=== PATIENT | female | born 1955 | race Caucasian/White ===

== ENCOUNTER → 2016-09-11 | Outpatient (CLI) | payer OTHER ==
--- NOTE | 2016-09-11 14:42 | MM ---
Reason for exam: screening (asymptomatic). Last mammogram was performed 5 years and 2 months ago. Physical Findings: A clinical breast exam by your physician is recommended on an annual basis and results should be correlated with mammographic findings. MG Screening Mammo w CAD Bilateral CC and MLO view(s) were taken. Prior study comparison: July 11, 2011, bilateral digital screening mammo w/CAD. June 14, 2009, bilateral digital screening mammogram. The breast tissue is heterogeneously dense. This may lower the sensitivity of mammography. Increasing nodularity in the right breast. ASSESSMENT: Incomplete: need additional imaging evaluation, BI-RAD 0 RECOMMENDATION: Ultrasound of the right breast. [facility] will attempt to contact patient to return for ultrasound.
== END | disposition home or self-care (01) ==
LOC: RADMAMWWP 09:12
PROVIDERS: ATTEND Family Medicine
DX: Z12.31 Encounter for screening mammogram for malignant neoplasm of breast (principal)

== ENCOUNTER → 2016-10-22 | Outpatient (CLI) | payer OTHER ==
--- NOTE | 2016-10-23 07:18 | USB ---
Reason for exam: additional evaluation requested from abnormal screening. Physical Findings: Nurse did not find any significant physical abnormalities on exam. US Breast Workup RT Right breast ultrasound includes all four quadrants, the retroareolar region and axilla. Finding demonstrates a 0.4 x 0.3 x 0.3cm oval lesion too small to characterize at 3 o'clock and a 0.6 x 0.6 x 1.2cm oval, cystic cluster at 4 o'clock. These results were verbally communicated with the patient and result sheet given to the patient on 10/22/16. ASSESSMENT: Probably benign, BI-RAD 3 RECOMMENDATION: Ultrasound of the right breast in 6 months.
== END | disposition home or self-care (01) ==
LOC: RADUSWWP 14:51
PROVIDERS: ATTEND Family Medicine
DX: R92.8 Other abnormal and inconclusive findings on diagnostic imaging of breast (principal)

== ENCOUNTER → 2017-05-13 | Outpatient (CLI) | payer OTHER ==
--- NOTE | 2017-05-13 10:29 | USB ---
Reason for exam: follow-up at short interval from prior study. Physical Findings: Nurse did not find any significant physical abnormalities on exam. US Breast RT Right breast ultrasound includes all four quadrants, the retroareolar region and axilla. Finding demonstrates a 0.8 x 1.3 x 0.5cm cystic lesion at 4 o'clock. These results were verbally communicated with the patient and result sheet given to the patient on 05/13/17. ASSESSMENT: Benign, BI-RAD 2 RECOMMENDATION: Return to routine screening mammogram schedule for both breasts. Back on schedule.
== END | disposition home or self-care (01) ==
LOC: RADUSWWP 09:23
PROVIDERS: ATTEND Family Medicine
DX: R92.8 Other abnormal and inconclusive findings on diagnostic imaging of breast (principal)

== ENCOUNTER → 2020-01-06 | Outpatient (CLI) | payer MEDICARE, OTHER | END | disposition home or self-care (01) | LOC: LABWHC1 09:23 | PROVIDERS: ATTEND Nurse Practitioner Family | DX: Z20.828 Contact with and (suspected) exposure to other viral communicable diseases (principal) | CPT/HCPCS: U0003; C9803 ==

== ENCOUNTER 2021-04-16 18:19 | Inpatient (IN) | payer MEDICARE, OTHER ==
[2021-04-16 18:36] LABS: Glucose,Whole Blood 101 mg/dL (75-99)
[2021-04-16 18:56] LABS: Basophils # (A) 0.1 k/uL (0-0.2); Basophils % (A) 1 %; Eosinophils # (A) 0.2 k/uL (0-0.7); Eosinophils % (A) 3 %; HCT 46.1 % (34.0-46.0); HGB 15.3 gm/dL (11.4-16.0); Lymphocytes # (A) 1.9 k/uL (1.0-4.8); Lymphocytes % (A) 26 %; MCH 31.5 pg (25.0-35.0); MCHC 33.3 g/dL (31.0-37.0); MCV 94.7 fL (80.0-100.0); Mean Platelet Volume 8.1; Monocytes # (A) 0.7 k/uL (0-1.0); Monocytes % (A) 11 %; Neutrophils % (A) 56 %; Platelet Count 189 k/uL (150-450); RBC 4.86 m/uL (3.80-5.40); RDW 12.1 % (11.5-15.5); WBC 7.1 k/uL (3.8-10.6)
--- NOTE | 2021-04-16 18:57 | ED ---
General Adult HPI - General Chief complaint: Neuro Symptoms/Deficit Stated complaint: poss stroke Source: patient, EMS Mode of arrival: ambulatory Limitations: no limitations - History of Present Illness Initial comments: 58-year-old female past medical history of hypertension presents emergency Department with reported numbness, tingling and heaviness to her left side. Symptoms started around 5:25 PM. States that she had sudden onset of sensory change to these extremities. Denies having any weakness.Difficulties, headache. Denies any head trauma. No history of strokes. EMS was called and en route to the hospital the patient possibly had an episode of A. fib however there unable to capture it. Patient does not have a history of A. fib. Arrives in a normal sinus rhythm. She denies having any chest pain. No fevers. Patient any anticoagulation. No back pain. No other alleviating, precipitating or modifying factors - Related Data Home Medications Medication Instructions Recorded Confirmed Amoxic-Pot Clav 875-125Mg 1 tab PO BID 04/16/21 04/16/21 [Augmentin 875-125] Levothyroxine Sodium [Synthroid] 150 mcg PO HS 04/16/21 04/16/21 amLODIPine [Norvasc] 5 mg PO HS 04/16/21 04/16/21 Allergies Allergy/AdvReac Type Severity Reaction Status Date / Time acetaminophen [From Percocet] Allergy Rash/Hives Verified 04/16/21 19:26 morphine Allergy Rash/Hives Verified 04/16/21 19:26 oxycodone [From Percocet] Allergy Rash/Hives Verified 04/16/21 19:26 Sulfa (Sulfonamide Allergy Rash/Hives Verified 04/16/21 19:26 Antibiotics) Tetracyclines Allergy Rash/Hives Verified 04/16/21 19:26 Review of Systems ROS Statement: Those systems with pertinent positive or pertinent negative responses have been documented in the HPI. ROS Other: All systems not noted in ROS Statement are negative. Past Medical History Past Medical History: Hypertension, Thyroid Disorder History of Any Multi-Drug Resistant Organisms: None Reported Past Surgical History: Section Additional Past Surgical History / Comment(s): Thyroidectomy, Past Psychological History: No Psychological Hx Reported Smoking Status: Former smoker Past Alcohol Use History: Occasional Past Drug Use History: None Reported General Exam Limitations: no limitations Course Vital Signs 04/16/21 04/16/21 04/16/21 18:23 18:47 18:53 Temperature 99.6 F 99.5 F 98.5 F Pulse Rate 110 H 107 H 106 H Respiratory 18 18 18 Rate Blood Pressure 190/80 201/99 201/99 O2 Sat by Pulse 92 L 93 L 98 Oximetry 04/16/21 04/16/21 19:17 22:00 Temperature 98.6 F Pulse Rate 105 H 99 Respiratory 18 18 Rate Blood Pressure 171/90 153/94 O2 Sat by Pulse 97 95 Oximetry - Reevaluation(s) Reevaluation #1: 04/16/21 18:[address] Cheng - not a TPA candidate EKG Findings - EKG Comments: EKG Findings:: EKG demonstrates a sinus tachycardia with a rate of 107. AR interval 184. QRS 87. QTC of 402. No acute ST segment elevations or depressions concerning for ischemic changes. Medical Decision Making - Medical Decision Making Upon arrival patient is promptly placed in a trauma 1. A thorough history and physical exam was performed. NIH is assessed and is noted to be 1. Because of this we did activate a code alteplase. IV is established and laboratory studies were conducted. Patient does go over for a CT of her head as well as CT angiogr aphy. Case is discussed with Dr. Witt. As she does have a low NIH he feels that the patient is not a candidate for TPA unless there is large vessel occlusion. Laboratory studies are within normal limits. CT of the brain demonstrates no acute findings. Chest x-ray demonstrates no active cardio pulmonary disease. Patient is given aspirin and a statin. Recommended admission for TIA workup for which the patient did agree to. She continues to have persistent tingling to the lateral aspect of her left foot. I spoke with Dr. Angel who agreed to admit the patient. Patient remained in stable condition and was transferred to the floor - Lab Data Result diagrams: 04/16/21 18:28 04/16/21 18:28 Lab Results 04/16/21 04/16/21 04/16/21 Range/Units 18:28 18:28 18:28 WBC 7.1 (3.8-10.6) k/uL RBC 4.86 (3.80-5.40) m/uL Hgb 15.3 (11.4-16.0) gm/dL Hct 46.1 H (34.0-46.0) % MCV 94.7 (80.0-100.0) fL MCH 31.5 (25.0-35.0) pg MCHC 33.3 (31.0-37.0) g/dL RDW 12.1 (11.5-15.5) % Plt Count 189 (150-450) k/uL MPV 8.1 Neutrophils % 56 % Lymphocytes % 26 % Monocytes % 11 % Eosinophils % 3 % Basophils % 1 % Neutrophils # 4.0 (1.3-7.7) k/uL Lymphocytes # 1.9 (1.0-4.8) k/uL Monocytes # 0.7 (0-1.0) k/uL Eosinophils # 0.2 (0-0.7) k/uL Basophils # 0.1 (0-0.2) k/uL PT 10.0 (9.0-12.0) sec INR 0.9 (<1.2) APTT 20.0 L (22.0-30.0) sec Sodium 136 L (137-145) mmol/L Potassium 4.0 (3.5-5.1) mmol/L Chloride 103 (98-107) mmol/L Carbon Dioxide 22 (22-30) mmol/L Anion Gap 11 mmol/L BUN 9 (7-17) mg/dL Creatinine 0.59 (0.52-1.04) mg/dL Est GFR (CKD-EPI)AfAm >90 (>60 ml/min/1.73 sqM) Est GFR (CKD-EPI)NonAf >90 (>60 ml/min/1.73 sqM) Glucose 103 H (74-99) mg/dL POC Glucose (mg/dL) (75-99) mg/dL POC Glu Siding Stapler ID Calcium 8.9 (8.4-10.2) mg/dL Total Bilirubin 0.6 (0.2-1.3) mg/dL AST 33 (14-36) U/L ALT 35 H (4-34) U/L Alkaline Phosphatase 80 (38-126) U/L Troponin I (0.000-0.034) ng/mL Total Protein 6.8 (6.3-8.2) g/dL Albumin 4.3 (3.5-5.0) g/dL Coronavirus (PCR) (Not Detectd) 04/16/21 04/16/21 04/16/21 Range/Units 18:28 18:34 20:36 WBC (3.8-10.6) k/uL RBC (3.80-5.40) m/uL Hgb (11.4-16.0) gm/dL Hct (34.0-46.0) % MCV (80.0-100.0) fL MCH (25.0-35.0) pg MCHC (31.0-37.0) g/dL RDW (11.5-15.5) % Plt Count (150-450) k/uL MPV Neutrophils % % Lymphocytes % % Monocytes % % Eosinophils % % Basophils % % Neutrophils # (1.3-7.7) k/uL Lymphocytes # (1.0-4.8) k/uL Monocytes # (0-1.0) k/uL Eosinophils # (0-0.7) k/uL Basophils # (0-0.2) k/uL PT (9.0-12.0) sec INR (<1.2) APTT (22.0-30.0) sec Sodium (137-145) mmol/L Potassium (3.5-5.1) mmol/L Chloride (98-107) mmol/L Carbon Dioxide (22-30) mmol/L Anion Gap mmol/L BUN (7-17) mg/dL Creatinine (0.52-1.04) mg/dL Est GFR (CKD-EPI)AfAm (>60 ml/min/1.73 sqM) Est GFR (CKD-EPI)NonAf (>60 ml/min/1.73 sqM) Glucose (74-99) mg/dL POC Glucose (mg/dL) 101 H (75-99) mg/dL POC Glu Siding Stapler ID Andres, Heena Calcium (8.4-10.2) mg/dL Total Bilirubin (0.2-1.3) mg/dL AST (14-36) U/L ALT (4-34) U/L Alkaline Phosphatase (38-126) U/L Troponin I <0.012 (0.000-0.034) ng/mL Total Protein (6.3-8.2) g/dL Albumin (3.5-5.0) g/dL Coronavirus (PCR) Not Detected (Not Detectd) Disposition Clinical Impression: Paresthesia and pain of left extremity, TIA (transient ischemic attack) Disposition: ADMITTED IP TO THIS [facility] Condition: Stable Is patient prescribed a controlled substance at d/c from ED?: No Decision to Admit Reason: Admit from EC Decision Date: 04/16/21 Decision Time: 21:38
--- NOTE | 2021-04-16 19:01 | CT ---
EXAMINATION TYPE: CT brain wo con for TPA DATE OF EXAM: 04/16/2021 COMPARISON: None HISTORY: cva CT DLP: 1134 mGycm Automated exposure control for dose reduction was used. Images of the brain obtained without contrast. Ventricles have normal size. There is no mass effect or midline shift. There is no sign of intracrani al hemorrhage. Calvarium is intact. The skull base is intact. There is normal aeration of the mastoid sinuses. IMPRESSION: Head CT scan appears normal for age.
[2021-04-16 19:05] LABS: ALT 35 U/L (4-34); AST 33 U/L (14-36); African American GFR (CKD) >90 (>60 ml/min/1.73 sqM); Albumin 4.3 g/dL (3.5-5.0); Alkaline Phosphatase 80 U/L (38-126); Anion Gap 11 mmol/L; Blood Urea Nitrogen 9 mg/dL (7-17); Calcium 8.9 mg/dL (8.4-10.2); Carbon Dioxide 22 mmol/L (22-30); Chloride 103 mmol/L (98-107); Glucose 103 mg/dL (74-99); Non-African American GFR(CKD) >90 (>60 ml/min/1.73 sqM); Sodium 136 mmol/L (137-145); Total Bilirubin 0.6 mg/dL (0.2-1.3); Total Protein 6.8 g/dL (6.3-8.2)
[2021-04-16 19:11] LABS: INR 0.9 (<1.2)
--- NOTE | 2021-04-16 19:24 | CT ---
EXAMINATION TYPE: CT angio head neck DATE OF EXAM: 04/16/2021 COMPARISON: HISTORY: cva CT DLP: 603.1 mGycm Automated exposure control for dose reduction was used. CONTRAST: Performed with IV Contrast, patient injected with 65cc mL of Isovue 370. Images obtained from the aortic arch to the vertex of the brain with IV contrast. There are Three-D p ostprocessed images. 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 There is arterial flow in both subclavian arteries. There is arterial flow in the vertebral arteries bilaterally. There is arterial flow in the common internal and extra carotid arteries bilaterally. There is wide patency of the carotid artery bifurcations. There is no evidence of carotid or vertebral artery aneurysm or dis section. Left vertebral artery is larger than the right. There is arterial flow to the vertebral basi lar artery system. There is arterial flow in the anterior middle and posterior cerebral arteries. There is no mass effec t. There is no evidence of intracranial aneurysm or neovascularity. No evidence of intracranial hemod ynamic stenosis. There is normal enhancement of the venous sinuses. IMPRESSION: Negative CT angiogram of the neck. Negative CT angiogram of the brain.
--- NOTE | 2021-04-16 20:56 | XR ---
EXAMINATION TYPE: XR chest 2V DATE OF EXAM: 04/16/2021 COMPARISON: NONE HISTORY: Altered mental status TECHNIQUE: 2 views FINDINGS: There is no heart failure nor confluent pneumonic infiltrate. Costophrenic angles are clear . There are chest leads. Bony thorax is intact. IMPRESSION: No active cardiopulmonary disease.
[2021-04-16] MEDS ORDERED: ASPIRIN 325 MG TAB PO STA (22:20)
[2021-04-16] MEDS ORDERED: ATORVASTATIN 80 MG TAB PO SCH (22:30)
--- NOTE | 2021-04-17 01:20 | P.HPIM ---
History of Present Illness H&P Date: 04/17/21 The patient is a 66-year-old female with a PMH of hypertension and hypothyroidism who presented to the emergency room with complaints of sudden onset of left sided paresthesias. The patient reports that her symptoms started suddenly at around 5:30 PM earlier tonight as she was preparing her dinner in her kitchen. She reports numbness, tingling, and heaviness of the entire left side of her body. The patient immediately informed her who activated EMS. The patient denied any history of prior strokes. She further denied experiencing weakness, chest discomfort, shortness of breath, visual disturbances, or speech impairment. As per the ED documentation, the patient was noted to be in A. fib by the EMS though it could not be captured. Patient denied history of A. fib. At the time of interview, the patient reported that her symptoms have resolved times since onset and then recur after a few minutes. She does report improvement at the time of interview. She denied back pain, u rinary complaints, anxiety, history of panic disorder, fever, chills, cough, nausea, vomiting, abdominal pain, diarrhea. Brain CT in the emergency room was unremarkable with CTA head and neck also unremarkable. Chest x-ray was unremarkable. EKG revealed sinus a cardiac 107 bpm with left axis deviation and poor R-wave progression. Code stroke was activated the case was discussed with neuro weaver apprentice. The patient was deemed to not be a candidate for TPA. Review of systems: Pertinent positives and negatives as discussed in HPI, a complete review of systems was performed and all other systems are negative. Physical examination: General: non toxic, no distress, appears at stated age, obese Derm: no unusual rashes/lesions no unusual ecchymoses, warm, dry Head: atraumatic, normocephalic, symmetric Eyes: EOMI, no lid lag, anicteric sclera, pupils equal round reactive to light ENT: Nose and ears atraumatic, no thrush, no pharyngeal erythema Neck: No thyromegaly, no cervical lymphadenopathy, trachea midline, supple Mouth: no lip lesion, mucus membranes moist Cardiovascular: S1S2 reg, no murmur, positive posterior tibial pulse bilateral, no edema, capillary refill less than 2 seconds Lungs: CTA bilateral, no rhonchi, no rales , no accessory muscle use Abdominal: soft, nontender to palpation, no guarding, no appreciable organomegaly, normal bowel sounds Ext: no gross muscle atrophy, muscle strength 5 out of 5 in all 4 extremities grossly, no contractures, Neuro: CN II-XI grossly intact, left sided impaired sensation to light touch involving left lower extremity, left abdomen, trunk, and left upper extremity, finger to nose within normal limits, no pronator drift Psych: Alert, oriented, appropriate affect Assessment/plan Left sided paresthesias, suspected TIA -Status post aspirin 325 mg once -Continue with Lipitor -Echocardiogram -Cardiac monitoring -Speech consult -Fall precautions -PT consult Possible new-onset A-fib -C/w cardiac monitoring for now Chronic conditions: Hypertension, hypothyroidism -Continue with home meds DVT prophylaxis -Heparin Subcu The patient is admitted with an anticipated less than 2 midnight stay for evaluation of TIA CODE STATUS: Full Code Discussed with: Patient Anticipated discharge date: in am Anticipated discharge place: Home Past Medical History Past Medical History: Hypertension, Thyroid Disorder History of Any Multi-Drug Resistant Organisms: None Reported Past Surgical History: Section Additional Past Surgical History / Comment(s): Thyroidectomy, Past Psychological History: No Psychological Hx Reported Smoking Status: Former smoker Past Alcohol Use History: Occasional Past Drug Use History: None Reported Medications and Allergies Home Medications Medication Instructions Recorded Confirmed Type Amoxic-Pot Clav 875-125Mg 1 tab PO BID 04/16/21 04/16/21 History [Augmentin 875-125] Levothyroxine Sodium [Synthroid] 150 mcg PO HS 04/16/21 04/16/21 History amLODIPine [Norvasc] 5 mg PO HS 04/16/21 04/16/21 History Allergies Allergy/AdvReac Type Severity Reaction Status Date / Time acetaminophen [From Percocet] Allergy Rash/Hives Verified 04/16/21 19:26 morphine Allergy Rash/Hives Verified 04/16/21 19:26 oxycodone [From Percocet] Allergy Rash/Hives Verified 04/16/21 19:26 Sulfa (Sulfonamide Allergy Rash/Hives Verified 04/16/21 19:26 Antibiotics) Tetracyclines Allergy Rash/Hives Verified 04/16/21 19:26 Physical Exam Vitals: Vital Signs Temp Pulse Pulse Resp BP BP Pulse Ox 04/16/21 23:04 97.5 F L 102 H 18 174/86 95 04/16/21 22:00 99 18 153/94 95 04/16/21 19:17 98.6 F 105 H 18 171/90 97 04/16/21 18:53 98.5 F 106 H 18 201/99 98 04/16/21 18:47 99.5 F 107 H 18 201/99 93 L 04/16/21 18:23 99.6 F 110 H 18 190/80 92 L Intake and Output 04/16/21 04/16/21 04/17/21 14:59 22:59 06:59 Other: Weight 92.215 kg Results CBC & Chem 7: 04/16/21 18:28 04/16/21 18:28 Labs: Abnormal Lab Results - Last 24 Hours (Table) 04/16/21 04/16/21 04/16/21 Range/Units 18:28 18:28 18:28 Hct 46.1 H (34.0-46.0) % APTT 20.0 L (22.0-30.0) sec Sodium 136 L (137-145) mmol/L Glucose 103 H (74-99) mg/dL POC Glucose (mg/dL) (75-99) mg/dL ALT 35 H (4-34) U/L 04/16/21 Range/Units 18:34 Hct (34.0-46.0) % APTT (22.0-30.0) sec Sodium (137-145) mmol/L Glucose (74-99) mg/dL POC Glucose (mg/dL) 101 H (75-99) mg/dL ALT (4-34) U/L
[2021-04-17] MEDS: amLODIPine 5 MG TAB PO SCH ×2 (01:57→20:49)
[2021-04-17] MEDS: LEVOTHYROXINE 75 MCG TAB PO SCH ×2 (01:57→20:50)
[2021-04-17] MEDS: ASPIRIN 81 MG PO SCH (08:27)
[2021-04-17] MEDS: HEPARIN SODIUM,PORCINE/PF 5,000 UNIT/0.5 ML SYRINGE SQ SCH ×4 (08:27→20:59)
[2021-04-17] MEDS: ATORVASTATIN 40 MG TAB PO SCH (08:28)
--- NOTE | 2021-04-17 10:24 | P.CNNES ---
History of Present Illness Consult date: 04/17/21 Requesting physician: Sue Hemphill Reason for Consult: left sided paresthesia, suspect tia History of Present Illness: This is a 66-year-old woman with medical history of hypertension, hypothyroidism who presented emergency department via EMS on 04/16/2021 for sudden onset left- sided numbness and tingling. Patient symptoms started around 5:30 PM yesterday while she was in the kitchen preparing dinner and she felt dizzy/woozy and all of a sudden she felt her left upper and lower extremity was numb and tingling. She also told her left side was heavy. She said her left upper extremity improved but the left lower extremity has not he continues to have numbness and tingling. She said when she got to the ED her left lower extremity slightly improved but not back to baseline but now currently she has numbness and tingling. She denies of any difficulty getting her words out, swallowing, any new visual disturbance. As a result her called EMS. Patient denies any history of stroke in the past. It seems that the patient was noted that to be in A. fib by EMS though it could not be captured per the ED documentation. Patient denies history of atrial fibrillation. Patient stated she is on sporadic aspirin and may be taking it 2-3 times a week. Otherwise she is not on any regular dose of antiplatelets and she is not on any anticoagulation. She denies history of stroke/TIA in the past. She said that she has history of hypertension and it's not controlled. She socially drinks alcohol. She denies any illicit drug use. Patient's and daughter are at bedside. Some other workup in the hospital consisted of: Initial vital signs is a blood pressure of 190/80, heart rate of 110, her spells 18, pulse ox of 92 L at room air and temperature of 99.6 Fahrenheit oral. Patient repeated the blood pressure is 201/99. Most recent blood pressure is 153/94. Patient hematocrit is 46.1 otherwise the rest of the CBC with differential is unremarkable Chemistry panel is unremarkable. PT, PTT and INR is within normal limits Donnelly virus PCR was not detected. CT of the head is reported as normal for age. I personally reviewed the CT of the head and there was no acute subacute ischemia and there is no interpretable hemorrhage. CT angiography of the head and neck was reported as negative. EKG is reported as sinus tachycardia. Left axis deviation. Low QRS of voltage. Possible anterior myocardial infarction. Abnormal EKG. Review of Systems Review of system: The 12 point system was reviewed and apparent positive and negative per HPI. Past Medical History Past Medical History: Hypertension, Thyroid Disorder History of Any Multi-Drug Resistant Organisms: None Reported Past Surgical History: Section Additional Past Surgical History / Comment(s): Thyroidectomy, Past Anesthesia/Blood Transfusion Reactions: No Reported Reaction Past Psychological History: No Psychological Hx Reported Smoking Status: Former smoker Past Alcohol Use History: Occasional Past Drug Use History: None Reported Medications and Allergies Home Medications Medication Instructions Recorded Confirmed Type Amoxic-Pot Clav 875-125Mg 1 tab PO BID 04/16/21 04/16/21 History [Augmentin 875-125] Levothyroxine Sodium [Synthroid] 150 mcg PO HS 04/16/21 04/16/21 History amLODIPine [Norvasc] 5 mg PO HS 04/16/21 04/16/21 History Allergies Allergy/AdvReac Type Severity Reaction Status Date / Time acetaminophen [From Percocet] Allergy Rash/Hives Verified 04/16/21 19:26 morphine Allergy Rash/Hives Verified 04/16/21 19:26 oxycodone [From Percocet] Allergy Rash/Hives Verified 04/16/21 19:26 Sulfa (Sulfonamide Allergy Rash/Hives Verified 04/16/21 19:26 Antibiotics) Tetracyclines Allergy Rash/Hives Verified 04/16/21 19:26 Physical Examination - Vital Signs Vital Signs: Vital Signs Temp Pulse Pulse Resp BP BP Pulse Ox 04/17/21 07:34 90 16 04/17/21 07:12 97.7 F 90 16 168/79 95 04/17/21 00:51 97.9 F 96 18 186/84 96 04/16/21 23:04 97.5 F L 102 H 18 174/86 95 04/16/21 22:00 99 18 153/94 95 04/16/21 19:17 98.6 F 105 H 18 171/90 97 04/16/21 18:53 98.5 F 106 H 18 201/99 98 04/16/21 18:47 99.5 F 107 H 18 201/99 93 L 04/16/21 18:23 99.6 F 110 H 18 190/80 92 L Intake and Output 04/16/21 04/17/21 04/17/21 22:59 06:59 14:59 Intake Total 59 Balance 59 Intake: Oral 59 Other: Voiding Method Bedside Commode # Voids 2 # Bowel Movements 1 1 Weight 92.215 kg GENERAL: The patient is lying in bed and is not in acute distress. CHEST: The heart rate is regular rate rhythm. No murmurs to auscultation. No carotid bruit bilaterally. LUNG: Clear to auscultation bilaterally no wheezing noted throughout. Not labored breathing. ABDOMEN/GI: Bowel sounds present in all 4 quadrants. No tenderness to palpation throughout. NEUROLOGICAL: Higher mental function: The patient is awake, alert, oriented to self, place and time. Patient is following commands. No aphasia and no neglect. Cranial nerves: The pupils are round, equal and reactive to light and accommodation. Visual griffith are full to confrontation throughout. Extraocular movement is intact no nystagmus is noted. Facial sensation is normal to touch throughout. The facial strength is normal throughout. Hearing is normal bilaterally to hand rub. Tongue is midline and moved [id number] without any difficulty. No dysarthria is noted. Shoulder shrug is normal bilaterally. Motor: Gait is cautious and taking small steps but not swaying towards one side or other. The strength is 5 over 5 throughout. Normal tone and bulk. Cerebellum: Normal finger to nose bilaterally. Sensation: Sensation is decreased over the left lower extremity. Reflexes (right/left): 2+ throughout. Plantars are downgoing bilaterally. Results - Laboratory Findings CBC and BMP: 04/16/21 18:28 04/16/21 18:28 Abnormal Lab Findings: Abnormal Labs 04/16/21 04/16/21 04/16/21 18:28 18:28 18:28 Hct 46.1 H APTT 20.0 L Sodium 136 L Glucose 103 H POC Glucose (mg/dL) ALT 35 H 04/16/21 18:34 Hct APTT Sodium Glucose POC Glucose (mg/dL) 101 H ALT Assessment and Plan Assessment: Acute left-sided paresthesia (upper and lower extremity. Upper extremity resolved but continues to have symptoms over lower). Seems like acute CVA. NIH 1. No IV tpa since low NIH scale and the risk outweigh the benefit. Uncontrolled hypertension on presentation Questionable atrial fibrillation per EMS History of hypertension (per patient uncontrolled) Hypothyroidism Plan: In the ED the patient was started on aspirin 325 once then was started on 81 mg daily. I started the patient on dual antiplatelets aspirin 81 mg and Plavix 75 mg. The patient to be on dual antiplatelet and after that and to continue only aspirin 81 mg. Continue Lipitor 40 mg daily for secondary stroke prophylaxis. 2-D echo, lipid panel is ordered is pending. Ordered MRI Brain w/o since continues to have symptoms. I ordered hemoglobin A1c, vitamin B12, folate, TSH. Continue neuro checks. On the cardiac monitoring PT OT and ENVIRONMENTAL COMPLIANCE TECHNICIAN is consulted Cardiology is consulted for ?A-fib. Patient was notified to have her hypertension controlled at home and to monitor it (she is going to buy a blood pressure cuff). Will defer management during inpatient to primary team. We'll defer the rest of the medical management to the primary team Upon discharge the patient needs to follow-up with a neurologist as an outpatient within 1-2 weeks The plan is discussed with the patient and her family members who are at bedside ( and daughter). Thank you for the consultation. Jameel Goodman M.D. Neuro-hospitalist Time with Patient: Greater than 30
[2021-04-17] MEDS ORDERED: LORazepam 2 MG/ML INJ IV PRN (10:29)
--- NOTE | 2021-04-17 10:33 | ECHOF ---
Referral Reason:TIA MEASUREMENTS -------- HEIGHT: 157.5 cm WEIGHT: 92.1 kg BP: IVSd: 1.3 cm (0.6 - 1.1) LVIDd: 4.2 cm (3.9 - 5.3) LVPWd: 1.5 cm (0.6 - 1.1) IVSs: 1.5 cm LVIDs: 3.6 cm LVPWs: 1.6 cm LA Diam: 3.9 cm (2.7 - 3.8) Ao Diam: 3.7 cm (2.0 - 3.7) AV Cusp: 2.4 cm (1.5 - 2.6) LA Diam: 3.7 cm (2.7 - 3.8) MV EXCURSION: 16.790 mm (> 18.000) MV EF SLOPE: 70 mm/s (70 - 150) EPSS: 0.6 cm MV E Lul: 0.55 m/s MV DecT: 223 ms MV A Lul: 0.92 m/s MV E/A Ratio: 0.60 RAP: 5.00 mmHg RVSP: 13.59 mmHg FINDINGS -------- Sinus rhythm. This was a technically adequate study. The left ventricular size is normal. There is mild concentric left ventricular hypertrophy. Overa ll left ventricular systolic function is low-normal with, an EF between 50 - 55 %. The right ventricle is normal in size. The left atrial size is normal. The right atrial size is normal. There is mild aortic valve sclerosis. Mild mitral regurgitation is present. Mild tricuspid regurgitation present. Right ventricular systolic pressure is normal at < 35 mmHg. There is no pulmonic regurgitation present. There is no pericardial effusion. CONCLUSIONS -------- 1. The left ventricular size is normal. 2. There is mild concentric left ventricular hypertrophy. 3. Overall left ventricular systolic function is low-normal with, an EF between 50 - 55 %. 4. The right ventricle is normal in size. 5. The left atrial size is normal. 6. The right atrial size is normal. 7. There is mild aortic valve sclerosis. 8. Mild mitral regurgitation is present. 9. Mild tricuspid regurgitation present. 10. There is no pericardial effusion. C[employer] COVER LINE WORKER: Sirena Alberto RDCS
--- NOTE | 2021-04-17 12:18 | P.CRDCN ---
History of Present Illness History of present illness: HISTORY OF PRESENTING ILLNESS This is a pleasant 66-year-old female past medical history significant for hypertension, hypothyroidism. 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 No history of cardiac disease. We have been asked to see in consultation for possible atrial fibrillation. On 04/16/2021 patient had an episode of acute onset left-sided numbness and tingling. She states it started around 5:30PM she was preparing dinner. She had symptoms of dizziness/lightheadedness and had sudden left upper and lower extremity numbness and tingling. She states her left upper extremity has improved, but her lower left extremity continues to be numb and tingling. She denies of any difficulty with speech, swallowing, visual disturbances or weakness. She denies any symptoms of shortness of breath, chest pain, or palpitations. She denies history of prior TIA/CVA, arrhythmia, CAD, [place], Diabetes or dyslipidemia. DIAGNOSTICS EKG reveals sinus tachycardia, heart rate 107, no significant ST history of abnormalities. Echocardiogram revealed EF of 5055 percent, no significant wall motion abnor malities. Telemetry tracings indicate sinus mechanism, no evidence of atrial fibrillation noted. Brain CT with no acute intracranial abnormality. CT angiography was negative Chest xray no acute cardiopulmonary process. Laboratory reviewed, CBC unremarkable, sodium 136, potassium 4.0, BUN 9, serum renin 0.5, troponin negative, COVID-19 negative Current cardiac medications include amlodipine 5 mg nightly REVIEW OF SYSTEMS At the time of my exam: CONSTITUTIONAL: Denies fever or chills. CARDIOVASCULAR: Denies chest pain, shortness of breath, orthopnea, PND or palpitations. RESPIRATORY: Denies cough. GASTROINTESTINAL: Denies abdominal pain, diarrhea, constipation, nausea or vomiting. MUSCULOSKELETAL: Denies myalgias. NEUROLOGIC: + numbness,+ tingling,Denies headacbe or weakness. ENDOCRINE: Denies fatigue, weight change, polydipsia or polyurina. GENITOURINARY: Denies burning, hematuria or urgency with micturation. HEMATOLOGIC: Denies history of anemia or bleeding. PHYSICAL EXAMINATION Blood pressure 168/79, heart rate 90, afebrile, saturations 95% on room air CONSTITUTIONAL: No apparent distress. HEENT: Head is normocephalic. Pupils are equal, round. Sclerae anicteric. Mucous membranes of the mouth are moist. No JVD. No carotid bruit. CHEST EXAMINATION: Lungs are clear to auscultation. No chest wall tenderness is noted on palpation or with deep breathing. HEART EXAMINATION: Regular rate and rhythm. S1, S2 heard. No murmurs, gallops or rub. ABDOMEN: Soft, nontender. Positive bowel sounds. EXTREMITIES: 2+ peripheral pulses, no lower extremity edema and no calf tenderness. NEUROLOGIC EXAMINATION: Patient is awake, alert and oriented x3. ASSESSMENT Acute left-sided paresthesia Sinus tachycardia History of hypertension Hypothyroidism PLAN Obtain 2D echocardiogram with bubble study Monitor on telemetry Continue patient's amlodipine Neurology following, plan for Brain MRI If no evidence of atrial fibrillation during this admission, likely will order event monitor prior to discharge Further recommendations based on clinical course Nurse practitioner note has been reviewed by physician. Signing provider agrees with the documented findings, assessment, and plan of care. Past Medical History Past Medical History: Hypertension, Thyroid Disorder History of Any Multi-Drug Resistant Organisms: None Reported Past Surgical History: Section Additional Past Surgical History / Comment(s): Thyroidectomy, Past Anesthesia/Blood Transfusion Reactions: No Reported Reaction Past Psychological History: No Psychological Hx Reported Smoking Status: Former smoker Past Alcohol Use History: Occasional Past Drug Use History: None Reported Medications and Allergies Home Medications Medication Instructions Recorded Confirmed Type Amoxic-Pot Clav 875-125Mg 1 tab PO BID 04/16/21 04/16/21 History [Augmentin 875-125] Levothyroxine Sodium [Synthroid] 150 mcg PO HS 04/16/21 04/16/21 History amLODIPine [Norvasc] 5 mg PO HS 04/16/21 04/16/21 History Allergies Allergy/AdvReac Type Severity Reaction Status Date / Time acetaminophen [From Percocet] Allergy Rash/Hives Verified 04/16/21 19:26 morphine Allergy Rash/Hives Verified 04/16/21 19:26 oxycodone [From Percocet] Allergy Rash/Hives Verified 04/16/21 19:26 Sulfa (Sulfonamide Allergy Rash/Hives Verified 04/16/21 19:26 Antibiotics) Tetracyclines Allergy Rash/Hives Verified 04/16/21 19:26 Physical Exam Vitals: Vital Signs Temp Pulse Pulse Resp BP BP Pulse Ox 04/17/21 07:34 90 16 04/17/21 07:12 97.7 F 90 16 168/79 95 04/17/21 00:51 97.9 F 96 18 186/84 96 04/16/21 23:04 97.5 F L 102 H 18 174/86 95 04/16/21 22:00 99 18 153/94 95 04/16/21 19:17 98.6 F 105 H 18 171/90 97 04/16/21 18:53 98.5 F 106 H 18 201/99 98 04/16/21 18:47 99.5 F 107 H 18 201/99 93 L 04/16/21 18:23 99.6 F 110 H 18 190/80 92 L Intake and Output 04/16/21 04/17/21 04/17/21 22:59 06:59 14:59 Intake Total 59 Balance 59 Intake: Oral 59 Other: Voiding Method Bedside Commode # Voids 2 # Bowel Movements 1 1 Weight 92.215 kg Results 04/16/21 18:28 04/16/21 18:28 Cardiac Enzymes 04/16/21 04/16/21 Range/Units 18:28 18:28 AST 33 (14-36) U/L Troponin I <0.012 (0.000-0.034) ng/mL Coagulation 04/16/21 Range/Units 18:28 PT 10.0 (9.0-12.0) sec APTT 20.0 L (22.0-30.0) sec CBC 04/16/21 Range/Units 18:28 WBC 7.1 (3.8-10.6) k/uL RBC 4.86 (3.80-5.40) m/uL Hgb 15.3 (11.4-16.0) gm/dL Hct 46.1 H (34.0-46.0) % Plt Count 189 (150-450) k/uL Comprehensive Metabolic Panel 04/16/21 Range/Units 18:28 Sodium 136 L (137-145) mmol/L Potassium 4.0 (3.5-5.1) mmol/L Chloride 103 (98-107) mmol/L Carbon Dioxide 22 (22-30) mmol/L BUN 9 (7-17) mg/dL Creatinine 0.59 (0.52-1.04) mg/dL Glucose 103 H (74-99) mg/dL Calcium 8.9 (8.4-10.2) mg/dL AST 33 (14-36) U/L ALT 35 H (4-34) U/L Alkaline Phosphatase 80 (38-126) U/L Total Protein 6.8 (6.3-8.2) g/dL Albumin 4.3 (3.5-5.0) g/dL Current Medications Generic Name Dose Route Start Last Admin Trade Name Freq PRN Reason Stop Dose Admin Amlodipine Besylate 5 mg 04/17/21 01:35 04/17/21 01:57 Amlodipine 5 Mg Tab PO 5 mg HS LISSETT Administration Aspirin 81 mg 04/17/21 09:00 04/17/21 08:27 Aspirin 81 Mg PO 81 mg DAILY LISSETT Administration Atorvastatin Calcium 40 mg 04/17/21 09:00 04/17/21 08:28 Atorvastatin 40 Mg Tab PO 40 mg DAILY LISSETT Administration Clopidogrel Bisulfate 75 mg 04/17/21 10:15 Clopidogrel 75 Mg Tab PO DAILY LISSETT Heparin Sodium (Porcine) 5,000 unit 04/17/21 08:00 04/17/21 08:27 Heparin Sodium,Porcine/Pf 5,000 Unit/0.5 Ml Syringe SQ 5,000 unit Q8HR LISSETT Administration Levothyroxine Sodium 150 mcg 04/17/21 01:45 04/17/21 01:57 Levothyroxine 75 Mcg Tab PO 150 mcg HS LISSETT Administration Lorazepam 1 mg 04/17/21 10:29 Lorazepam 2 Mg/Ml Inj IV ONCE PRN Anxiety Intake and Output 04/16/21 04/17/21 04/17/21 22:59 06:59 14:59 Intake Total 59 Balance 59 Intake: Oral 59 Other: Voiding Method Bedside Commode # Voids 2 # Bowel Movements 1 1 Weight 92.215 kg 04/16/21 18:28 04/16/21 18:28
[2021-04-17] MEDS: CLOPIDOGREL 75 MG TAB PO SCH (12:29)
[2021-04-17 12:32] LABS: Chol/HDL Ratio 3.71 Ratio; LDL Cholesterol,Calculated 118.4 mg/dL (0.0-131.0); VLDL Calculation 15.98 mg/dL (5.00-40.00)
--- NOTE | 2021-04-17 14:16 | XR ---
EXAMINATION TYPE: XR cervical spine comp DATE OF EXAM: 04/17/2021 TECHNIQUE: Frontal, lateral, oblique, and open mouth view of the cervical spine are obtained. HISTORY: cervical pain upon palpation, paresthesias L side COMPARISON: None FINDINGS: The cervical spine is visualized in its entirety from C1 thru the mid to lower C7 level, i t is straightened in alignment without evidence of acute fracture or dislocation. Slight Grade 1 ante rolisthesis C2 on C3. The pre-vertebral soft tissue appears within normal limits. The C1-C2 articula tion is within normal limits on the open mouth view. Vertebral body heights are preserved. Mild disc space narrowing C5-C6 level. Moderate to severe disc space narrowing with mild/moderate spurring C6- C7 level. Suboptimal evaluation of and entire C7 vertebra and C7-T1 disc space without dedicated swim mackenzie's view. The oblique images are within normal limits. Moderate to large multilevel lateral spurrin g is present. Overlying soft tissue is unremarkable. IMPRESSION: As above.
--- NOTE | 2021-04-17 14:57 | MR ---
"EXAMINATION TYPE: MR brain wo con DATE OF EXAM: 04/17/2021 COMPARISON: CT brain from yesterday HISTORY: Left sided paresthesia, stroke TECHNIQUE: Multiplanar, multisequence imaging of the brain and brainstem is performed without IV cont rast. FINDINGS: Diffusion weighted images demonstrate 2 round subcentimeter foci measuring 6 and 4 mm in the lateral aspect right thalamus images 128 at 136 series 303 with increased signal on diffusion-weighted imagin g and diminished signal on ADC mapping that show T2 hyperintensity consistent with evolving acute inf arcts. The ventricular system and cisternal spaces are normal in size and appearance. The brain volume is a ge appropriate. Occasional scattered tiny focus of hyperintensity seen throughout the white matter bi laterally. Approximate 20-25 scattered lesions are present. Lesions are nonspecific in appearance and distribution. Midline structures demonstrate normal morphology. The craniocervical junction appears within normal limits. Normal vascular flow voids are present. Left vertebral artery incidentally noted. Mild mucosa l thickening posterior inferior right maxillary sinus redemonstrated otherwise paranasal sinuses are clear and the globes are intact bilaterally. IMPRESSION: 1. There are 2 adjacent involving acute lacunar infarcts lateral aspect right thalamus. A Yellow level critical message alert has been initiated for Rolando Malcolm MD via the [employer] | Critical Results System on 04/17/2021 2:54 PM. This message alert has been sent to Rolando Angel MD vi a the preferences provided by the clinician for the receipt of Radiology Critical Findings. Message I D [id number]."
--- NOTE | 2021-04-17 16:34 | P.PN ---
Subjective Progress Note Date: 04/17/21 Hospital course: Patient is a 66-year-old female with a past medical history of hypertension and hypothyroidism. She presented to the emergency department 04/16/21 with a chief complaint of sudden onset of left-sided paresthesias. CT head was negative for acute intercranial process. CTA head and neck negative. Echocardiogram revealing an EF of 50-55% with no significant valvular abnormalities. CBC, BMP, and coags unremarkable. Troponin normal findings at less than 0.012. Patient was admitted under our services with consultation to neurology. Patient awaiting MRI of brain and cervical spine x-ray to be completed. Physical exam: Patient seen and fully evaluated at the bedside. She continues to have persistent left upper and left lower extremity paresthesias. Patient reports a persistent numbness and tingling throughout left upper and left lower extremity accompanied by a feeling of fullness almost like she is going to burst out of her skin. Patient has no other neurological deficits noted. She did report pain upon palpation the cervical spine. X-ray cervical spine to be completed. MRI also to be completed secondary to persistent upper and lower extremity paresthesias and further rule out CVA. Patient continues to deny having any headache, lightheadedness, dizziness, changes in her vision or hearing, dysphasia, changes in her difficulties with speech or memory, chest pain, palpitations, shortness of breath, or experiencing any weakness or swelling in extremities. Vital signs reviewed and stable. General: Nontoxic, no distress and appears stated age. Derm: Skin warm and dry, normal coloration for ethnicity. Head: Atraumatic, normocephalic and symmetric. Eyes: EOMs intact, no lid lag, and anicteric sclera Mouth: no lip lesions, mucus membranes moist Cardiovascular: regular rate and rhythm with normal S1S2, no murmur, positive posterior tibial pulses bilaterally, and cap refill < 2 seconds. Lungs: Respirations even, regular, and unlabored on room air. Lungs CTA bilaterally, no rhonchi, no rales, no wheezing, and no accessory muscle usage. Abdominal: soft, nontender to palpation, no guarding, no appreciable organomegaly Ext: ROM intact. No gross muscle atrophy, no edema, no contractures Neuro: Speech clear, face symmetrical and CN II-XII grossly intact with no noted focal neuro deficits Psych: Alert and oriented to person, place, time, and situation. Appropriate and pleasant affect. Assessment and Plan of Care: Left-sided paresthesias, rule out CVA -Initial NIH score was 1 upon arrival to facility. -Patient continues to have persistent left upper and lower extremity paresthesias. -CT head negative for acute intercranial process. -CTA head and neck negative -Neurology following -Continue neuro checks -Lipid profile and hemoglobin A1c pending results -Continue daily aspirin, atorvastatin, and Plavix -MRI brain and x-ray cervical spine to be completed. Hypertension -Monitor vital signs and continue daily medication regimen with amlodipine 5 mg nightly. Hypothyroidism -Continue daily medication regimen with levothyroxine 150 g each morning. CODE STATUS: Full code DVT prophylaxis: Heparin Discussed with: Patient, patient's daughter, patient , and RN Anticipated discharge date: 1-[address]: Home A total of 35 minutes was spent on the care of this complex patient more than 50% of the time was spent in counseling and care coordination. Objective - Vital Signs Vital signs: Vital Signs Temp 97.7 F 04/17/21 07:12 Pulse 90 04/17/21 07:34 Resp 16 04/17/21 07:34 BP 168/79 04/17/21 07:12 Pulse Ox 95 04/17/21 07:12 Intake & Output 04/16/21 04/17/21 04/17/21 18:59 06:59 18:59 Intake Total 59 Balance 59 Weight 92.215 kg 92.215 kg Intake: Oral 59 Other: Voiding Method Bedside Commode # Voids 2 # Bowel Movements 1 1 - Labs CBC & Chem 7: 04/16/21 18:28 04/16/21 18:28 Labs: Abnormal Lab Results - Last 24 Hours (Table) 04/16/21 04/16/21 04/16/21 Range/Units 18:28 18:28 18:28 Hct 46.1 H (34.0-46.0) % APTT 20.0 L (22.0-30.0) sec Sodium 136 L (137-145) mmol/L Glucose 103 H (74-99) mg/dL POC Glucose (mg/dL) (75-99) mg/dL ALT 35 H (4-34) U/L 04/16/21 Range/Units 18:34 Hct (34.0-46.0) % APTT (22.0-30.0) sec Sodium (137-145) mmol/L Glucose (74-99) mg/dL POC Glucose (mg/dL) 101 H (75-99) mg/dL ALT (4-34) U/L
[2021-04-17] MEDS: GABAPENTIN 100 MG CAP PO SCH (20:49)
[2021-04-17] MEDS ORDERED: LEVOTHYROXINE 75 MCG TAB PO SCH (21:00)
[2021-04-17] MEDS ORDERED: amLODIPine 5 MG TAB PO SCH (21:00)
[2021-04-18] MEDS: ASPIRIN 81 MG PO SCH (09:09)
[2021-04-18] MEDS: HEPARIN SODIUM,PORCINE/PF 5,000 UNIT/0.5 ML SYRINGE SQ SCH ×2 (09:09→17:19)
[2021-04-18] MEDS: GABAPENTIN 100 MG CAP PO SCH (09:09)
[2021-04-18] MEDS: ATORVASTATIN 40 MG TAB PO SCH (09:09)
[2021-04-18] MEDS: CLOPIDOGREL 75 MG TAB PO SCH (09:09)
[2021-04-18] MEDS ORDERED: lisinopriL 5 MG TAB PO SCH (12:00)
--- NOTE | 2021-04-18 12:02 | P.PN ---
Subjective This is a pleasant 66-year-old female past medical history significant for hypertension, hypothyroidism. 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 No history of cardiac disease. We have been asked to see in consultation for possible atrial fibrillation. On 04/16/2021 patient had an episode of acute onset left-sided numbness and tingling. She states it started around 5:30PM she was preparing dinner. She had symptoms of dizziness/lightheadedness and had sudden left upper and lower extremity numbness and tingling. She states her left upper extremity has improved, but her lower left extremity continues to be numb and tingling. She denies of any difficulty with speech, swallowing, visual disturbances or weakness. She denies any symptoms of shortness of breath, chest pain, or palpitations. She denies history of prior TIA/CVA, arrhythmia, CAD, MT, Diabetes or dyslipidemia. DIAGNOSTICS EKG reveals sinus tachycardia, heart rate 107, no significant ST history of abnormalities. Echocardiogram revealed EF of 5055 percent, no significant wall motion abnormalities. Telemetry tracings indicate sinus mechanism, no evidence of atrial fibrillation noted during this admission MRI of the brain revealed 2 adjacent involving an acute lacunar infarcts lateral aspect right thalamus CT angiography was negative Chest xray no acute cardiopulmonary process. Echocardiogram revealed EF 5055 percent, mild mitral regurgitation, mild tricuspid regurgitation 04/18/2021 Patient seen and examined at bedside, no acute distress. She is upset regarding her diagnosis of CVA. Telemetry reviewed patient in sinus mechanism, heart rate 70s-90s, no atrial fibrillation noted. MRI revealed to acute lacunar infarcts. Blood pressure 157/81, heart rate 70, afebrile, saturations 94% on room air She's currently maintained on amlodipine 5 mg daily, aspirin 81 mg daily, atorvastatin 40 mg daily, Plavix 75 mg daily PHYSICAL EXAMINATION Vitals reviewed CONSTITUTIONAL: No apparent distress. HEENT: Neck supple No JVD. CHEST EXAMINATION: Lungs are clear to auscultation. No chest wall tenderness is noted on palpation or with deep breathing. HEART EXAMINATION: Regular rate and rhythm. S1, S2 heard. No murmurs, gallops or rub. ABDOMEN: Soft, nontender. Positive bowel sounds. EXTREMITIES: 2+ peripheral pulses, no lower extremity edema and no calf tenderness. NEUROLOGIC EXAMINATION: Patient is awake, alert and oriented x3. ASSESSMENT Acute left-sided paresthesia MRI revealed 2 adjacent involving an acute lacunar infarcts lateral aspect right thalamus Sinus tachycardia History of hypertension Hypothyroidism PLAN Continue patient's amlodipine Recommend starting Lisinopril 5mg daily If no evidence of atrial fibrillation during this admission, recommend 30 day event monitor to be placed prior to discharge Unable to obtain Obtain 2D echocardiogram with bubble study due to not good quality images. [place] can be considered as an outpatient From a cardiology perspective, patient is stable. Follow up with Dr. Wilson outpatient Nurse practitioner note has been reviewed by physician. Signing provider agrees with the documented findings, assessment, and plan of care. Objective - Vital Signs Vital signs: Vital Signs Temp 98.3 F 04/18/21 07:22 Pulse 70 04/18/21 07:25 Resp 20 04/18/21 07:25 BP 157/81 04/18/21 06:27 Pulse Ox 94 L 04/18/21 06:27 Intake & Output 04/17/21 04/18/21 04/18/21 18:59 06:59 18:59 Intake Total 118 Balance 118 Intake: Oral 118 Other: Voiding Method Bedside Commode Toilet Bedside Commode # Voids 3 2 # Bowel Movements 1 - Labs CBC & Chem 7: 04/16/21 18:28 04/16/21 18:28 Labs: Abnormal Lab Results - Last 24 Hours (Table) 04/17/21 Range/Units 07:41 Hemoglobin A1c 6.1 H (0.0-6.0) %
--- NOTE | 2021-04-18 12:09 | P.PN ---
Subjective Progress Note Date: 04/18/21 The patient is seen at bedside and continues to have intermittent numbness and tingling over the left sided of body. Otherwise denies of any new neurological problems. She had MRI Brain which showed stroke over the right thalamus which I personally reviewed and it explains her symptoms. Objective - Vital Signs Vital signs: Vital Signs Temp 98.3 F 04/18/21 07:22 Pulse 70 04/18/21 07:25 Resp 20 04/18/21 07:25 BP 157/81 04/18/21 06:27 Pulse Ox 94 L 04/18/21 06:27 Intake & Output 04/17/21 04/18/21 04/18/21 18:59 06:59 18:59 Intake Total 118 Balance 118 Intake: Oral 118 Other: Voiding Method Bedside Commode Toilet Bedside Commode # Voids 3 2 # Bowel Movements 1 - Exam GENERAL: The patient is lying in bed and is not in acute distress. NEUROLOGICAL: Higher mental function: The patient is awake, alert, oriented to self, place and time. Patient is following commands. No aphasia and no neglect. Cranial nerves: The pupils are round, equal and reactive to light and accommodation. Visual griffith are full to confrontation throughout. Extraocular movement is intact no nystagmus is noted. Facial sensation is normal to touch throughout. The facial strength is normal throughout. Hearing is normal bilate rally to hand rub. Tongue is midline and moved [id number] without any difficulty. No dysarthria is noted. Shoulder shrug is normal bilaterally. Motor: Gait is cautious and taking small steps but not swaying towards one side or other. The strength is 5 over 5 throughout. Normal tone and bulk. Cerebellum: Normal finger to nose bilaterally. Sensation: Sensation is decreased over the left lower extremity. Reflexes (right/left): 2+ throughout. Plantars are downgoing bilaterally. WORK-UP: Initial vital signs is a blood pressure of 190/80, heart rate of 110, her spells 18, pulse ox of 92 L at room air and temperature of 99.6 Fahrenheit oral. Patient repeated the blood pressure is 201/99. Most recent blood pressure is 153/94. Patient hematocrit is 46.1 otherwise the rest of the CBC with differential is unremarkable Chemistry panel is unremarkable. PT, PTT and INR is within normal limits Donnelly virus PCR was not detected. Lipid panel is triglyceride of 79, cholesterol is 184, LDLs 118, HDL is a 49. Vitamin B12 is 436, serum folate is 12.4. TSH is 1.80. Hemoglobin A1c 6.1. CT of the head is reported as normal for age. I personally reviewed the CT of the head and there was no acute subacute ischemia and there is no interpretable hemorrhage. CT angiography of the head and neck was reported as negative. MRI of the brain is reported as there is too adjacent involving acute lacunar infarct in the lateral aspect the right thalamus. I personally reviewed the MRI and agree with the finding. EKG is reported as sinus tachycardia. Left axis deviation. Low QRS of voltage. Possible anterior myocardial infarction. Abnormal EKG. 2-D echo was reported as mild concentric left ventricular hypertrophy. Ejection fraction of 50-55%. Left atrial size is normal. - Labs CBC & Chem 7: 04/16/21 18:28 04/16/21 18:28 Labs: Abnormal Lab Results - Last 24 Hours (Table) 04/17/21 Range/Units 07:41 Hemoglobin A1c 6.1 H (0.0-6.0) % Assessment and Plan Assessment: Acute ischemic stroke (right thalamus with presentation of left-sided paresthesia upper and lower extremity). NIH 1. No IV tpa since low NIH scale and the risk outweigh the benefit. Stroke seems due to small vessel diseae (from her risk factors Hypertension, borderline diabetes) Uncontrolled hypertension on presentation Borderline DM (HbA1c of 6.1) Questionable atrial fibrillation per EMS History of hypertension (per patient uncontrolled) Hypothyroidism Plan: Continue dual antiplatelets aspirin 81 mg and Plavix 75 mg (was only on home ASA sporadically). The patient to be on dual antiplatelet and after that and to continue only aspirin 81 mg. Continue Lipitor 40 mg daily for secondary stroke prophylaxis. LDL goal is <70. Continue neuro checks. On the cardiac monitoring. So far no A-fib or flutter. PT OT and PURCHASING INTERN is consulted Cardiology is consulted for ?A-fib and event monitor by primary team. Cardiology team ordered the bubble study. And if negative the low place the patient on event monitor prior to discharge. I started the patient on gabapentin 100 mg a tablet twice a day and I'll increase it to 100 mg 1 tablet 3 times a day which helps with paresthesia. Patient was notified to have her hypertension controlled at home and to monitor it (she is going to buy a blood pressure cuff). Will defer management during inpatient to primary team. We'll defer the rest of the medical management to the primary team Upon discharge the patient needs to follow-up with me in my office for neurological care ([facility], [address], [place], [place], ) as an outpatient within 1-2 weeks. The plan is discussed with the patient and her family members who are at bedside ( and daughter). Otherwise no further neurology work-up. Jameel Goodman M.D. Neuro-hospitalist Time with Patient: Less than 30
[2021-04-18] MEDS ORDERED: guaiFENesin 600 MG TABLET.ER PO SCH (13:30)
--- NOTE | 2021-04-18 14:41 | P.DS ---
<Hever Pereira - Last Filed: 04/18/21 14:45> Providers Expected date of discharge: 04/18/21 Hospital Course: Discharge Diagnosis: Acute ischemic CVA of right thalamus resulting in deficits of Left-sided paresthesias, continue atorvastatin along with dual antiplatelet therapy and follow up outpatient with neurology as recommended. Patient also being discharged home with home care including PT/OT. Patient to wear a 30 day event monitor to rule out any underlying cardiac arrhythmias. Hypertension, uncontrolled continue daily medication regimen with amlodipine 5 mg nightly and cardiology also added on lisinopril 5 mg daily Hypothyroidism, continue daily medication regimen with levothyroxine 150 g each morning. Hospital Course: Patient is a 66-year-old female with a past medical history of hypertension and hypothyroidism. She presented to the emergency department 04/16/21 with a chief complaint of sudden onset of left-sided paresthesias. CT head was negative for acute intercranial process. CTA head and neck negative. Echocardiogram revealing an EF of 50-55% with no significant valvular abnormalities. CBC, BMP, and coags unremarkable. Troponin normal findings at less than 0.012. Patient was admitted under our services with consultation to neurology and cardiology. X-ray cervical spine was negative for acute fracture or dislocations but did show mild, moderate, to severe disc narrowing with mild to moderate spurring. MRI completed revealing 2 adjacent involving acute lacunar infarcts lateral aspect of right thalamus. Patient was placed on dual antiplatelet therapy with aspirin and Plavix along with atorvastatin. Lipid profile showing no significant abnormalities. Hemoglobin A1c was slightly elevated at 6.1% discussed with patient goal of less than 6%. Patient states she is making lifestyle changes with dietary changes and will follow up with her primary doctor for repeat testing. Neurology recommending continued 21 day of dual antiplatelet therapy followed by daily aspirin and atorvastatin. Neurology also clearing patient for discharge recommending follow-up in their office for neurological care ([facility], [address], [place], [place], ) as an outpatient within 1-2 weeks. Cardiology evaluated the patient as well and ordered 30 day event monitor. Patient is medically stable at this time and is being discharged home with home care including PT/OT. Patient started on the Neurontin for pain associated with paresthesias of left upper and lower extremity. Patient to follow-up with PCP, cardiology, and neurology. New Prescriptions sent for aspirin, gabapentin, atorvastatin, Plavix, and lisinopril. Physical exam: Patient seen and fully evaluated at the bedside. She continues to have persistent left upper and left lower extremity paresthesias but reports an improvement in left upper extremity. Patient shows no other neurological deficits and denies having any numbness or weakness. Patient has full range of motion in bilateral upper and lower extremities with strong and equal strength. Speech remains clear. Patient, patient's daughter, and patient's were all updated on plan of care and recommendations for physical and occupational therapy upon discharge. Patient continues to deny having any headache, lightheadedness, dizziness, changes in her vision or hearing, dysphasia, changes in or difficulties with speech or memory, chest pain, palpitations, shortness of breath, or experiencing any weakness or swelling in extremities. Vital signs reviewed and stable. General: Nontoxic, no distress and appears stated age. Derm: Skin warm and dry, normal coloration for ethnicity. Head: Atraumatic, normocephalic and symmetric. Eyes: EOMs intact, no lid lag, and anicteric sclera Mouth: no lip lesions, mucus membranes moist Cardiovascular: regular rate and rhythm with normal S1S2, no murmur, positive posterior tibial pulses bilaterally, and cap refill < 2 seconds. Lungs: Respirations even, regular, and unlabored on room air. Lungs CTA bilaterally, no rhonchi, no rales, no wheezing, and no accessory muscle usage. Abdominal: soft, nontender to palpation, no guarding, no appreciable organomegaly Ext: ROM intact. No gross muscle atrophy, no edema, no contractures Neuro: Speech clear, face symmetrical and CN II-XII grossly intact with no noted focal neuro deficits Psych: Alert and oriented to person, place, time, and situation. Appropriate and pleasant affect. A total of 45 minutes of time were spent preparing this complex discharge summary. Patient Condition at Discharge: Stable Plan - Discharge Summary Discharge Rx Participant: Yes New Discharge Prescriptions: New Aspirin 81 mg PO DAILY 30 Days #30 tab Gabapentin [Neurontin] 100 mg PO TID 30 Days #90 cap Atorvastatin [Lipitor] 40 mg PO DAILY 30 Days #30 tab guaiFENesin [Mucinex] 600 mg PO Q12HR #0 tablet Clopidogrel [Plavix] 75 mg PO DAILY 20 Days #20 tab lisinopriL [Zestril] 5 mg PO DAILY 30 Days #30 tab Continue amLODIPine [Norvasc] 5 mg PO HS Levothyroxine Sodium [Synthroid] 150 mcg PO HS Discontinued Amoxic-Pot Clav 875-125Mg [Augmentin 875-125] 1 tab PO BID Discharge Medication List Levothyroxine Sodium [Synthroid] 150 mcg PO HS 04/16/21 [History] amLODIPine [Norvasc] 5 mg PO HS 04/16/21 [History] Aspirin 81 mg PO DAILY 30 Days #30 tab 04/18/21 [Rx] Atorvastatin [Lipitor] 40 mg PO DAILY 30 Days #30 tab 04/18/21 [Rx] Clopidogrel [Plavix] 75 mg PO DAILY 20 Days #20 tab 04/18/21 [Rx] Gabapentin [Neurontin] 100 mg PO TID 30 Days #90 cap 04/18/21 [Rx] guaiFENesin [Mucinex] 600 mg PO Q12HR #0 tablet 04/18/21 [Rx] lisinopriL [Zestril] 5 mg PO DAILY 30 Days #30 tab 04/18/21 [Rx] Follow up Appointment(s)/Referral(s): Nixon Goff MD [REFERRING] - 04/20/21 9:00 am (Patient requested information for new PCP, this is recommended provider. Please arrive around 830am for new patient paperwork. ) Jameel Goodman MD [STAFF PHYSICIAN] - 1 Week (follow-up with Dr. Goodman in his office for neurological care ([facility], [address] [facility], [place], [place], ) as an outpatient within 1- 2 weeks. ) Sonny Franklin DO [Doctor of Osteopathic Medicine] - 2 Weeks (This is the orthospine surgeon I informed you that you follow up with if you continue to have pain in your neck as xray showed there is narrowing, but no reports of disc bulging, acute fractures or dislocations.) Lazara Wilson MD [STAFF PHYSICIAN] - 4 Weeks (Follow up after 30 day event monitor ) [facility] Visiting Nurse, [NON-STAFF] - 1-2 Days Patient Instructions/Handouts: Transient Ischemic Attack (DC) Activity/Diet/Wound Care/Special Instructions: Activity: As tolerated. Take breaks as needed. Diet: Heart healthy and carb consistent diet. Avoid salts, or foods with hidden salts such as canned or boxed foods and frozen dinners. Extra salt makes your heart work harder and traps the fluid in your body for longer. Special Instructions: Take all of your medications as directed and remember to keep all of your doctor's appointments and follow-up as needed. Follow-up with Dr. Goodman in his office for neurological care ([facility], [address], [place], [place], ) as an outpatient within 1- 2 weeks. Please wear cardiac event monitor at all times as discussed with you by you stamp analyst and it is important to follow-up in their office in one month. A hemoglobin A1c was slightly elevated at 6.1% recommend getting under 6%. As we discussed maintain a heart healthy and carb consistent diet and he will need to have repeat hemoglobin A1c drawn by your primary doctor. Thank you for allowing us to participate in your care, it was truly a pleasure having you for our patient!!! Discharge Disposition: HOME WITH HOME HEALTH SERVICES <DavionJuanita A - Last Filed: 04/18/21 17:50> Providers Date of admission: 04/17/21 15:03 Attending physician: Rolando Angel MD Consults: 04/16/21 22:31 Consult Physician Urgent Consulting Provider: Jameel Goodman Consult Reason/Comments: left sided paresthesia, suspected tia Do you want consulting provider notified?: Yes 04/17/21 09:25 Consult Physician Routine Consulting Provider: Lazara Wilson Consult Reason/Comments: possible new onset a-fib, consider event monitor upon d/c Do you want consulting provider notified?: Yes Primary care physician: [facility] Course: Hever Pereira NP rendered care for this patient independently, reviewed the findings and plan as documented in the note above. I did not physically speak with or examine the patient on this date. Event monitor placed before discharge, Cardio will follow in outpatient setting and consider [place]
[2021-04-18 14:44] VITALS: BP 150/66; PULSE 54; RESP 18; TEMP 97.6
[2021-04-18] MEDS ORDERED: GABAPENTIN 100 MG CAP PO SCH (16:00)
== END 2021-04-18 17:40 | disposition home health service (06) | DRG 66 ==
LOC: EC 18:19 → 6NMEDSUR 22:23 → OBSVTOIN 04-17 15:03
PROVIDERS: ADMIT Internal Medicine; ATTEND Internal Medicine
DX: I63.81 Other cerebral infarction due to occlusion or stenosis of small artery (principal); R20.2 Paresthesia of skin; E89.0 Postprocedural hypothyroidism; R29.701 NIHSS score 1; R60.0 Localized edema; R73.03 Prediabetes; Z20.822 Contact with and (suspected) exposure to COVID-19; I08.3 Combined rheumatic disorders of mitral, aortic and tricuspid valves; I10 Essential (primary) hypertension; I48.91 Unspecified atrial fibrillation; Z79.02 Long term (current) use of antithrombotics/antiplatelets; Z79.82 Long term (current) use of aspirin; Z79.890 Hormone replacement therapy; Z79.899 Other long term (current) drug therapy; Z87.891 Personal history of nicotine dependence; Z88.5 Allergy status to narcotic agent; Z88.6 Allergy status to analgesic agent; Z88.2 Allergy status to sulfonamides; Z88.1 Allergy status to other antibiotic agents
CPT/HCPCS: 36415; 70450; 70496; 70498; 70551; 71046; 72050; 80053; 80061; 82607; 82746; 83036; 84443; 84484; 85025; 85610; 85730; 87635; 93005; 93270; 93306; 99285

== ENCOUNTER → 2021-09-12 | Outpatient (CLI) | payer MEDICARE, OTHER ==
--- NOTE | 2021-09-13 17:16 | MM ---
Reason for Exam: Screening (asymptomatic). Last mammogram was performed 5 year(s) and 0 month(s) ago. Patient History: Menarche at age 13. First Full-Term at age 20. Postmenopausal. Patient has history of breast feeding. Risk Values: Flora 5 year model risk: 1.4%. NCI Lifetime model risk: 4.6%. Prior Study Comparison: 06/14/2009 Bilateral Screening Mammogram, [facility]. 07/11/2011 Bilateral Screening Mammogram, [facility]. 09/11/2016 Bilateral Screening Mammogram, [facility]. Tissue Density: There are scattered fibroglandular densities. Findings: Analyzed By CAD. Chronic bilateral breast nodularity in a benign pattern. No significant change from prior exams. Overall Assessment: Benign, BI-RAD 2 Management: Screening Mammogram of both breasts in 1 year. 1. Patient should continue monthly self breast exams. 2. A clinical breast exam by your physician is recommended on an annual basis. 3. This exam should not preclude additional follow-up of suspicious palpable abnormalities. Electronically signed and approved by: Coretta Solorzano M.D. Radiologist
== END | disposition home or self-care (01) ==
LOC: RADMAMWWP 07:07
PROVIDERS: ATTEND Internal Medicine
DX: Z12.31 Encounter for screening mammogram for malignant neoplasm of breast (principal); Z78.0 Asymptomatic menopausal state
CPT/HCPCS: 77063; 77067

== ENCOUNTER 2022-02-03 03:38 | Emergency (ER) | payer MEDICARE, OTHER ==
[2022-02-03 03:51] VITALS: BP 143/72; PULSE 106; RESP 20; TEMP 97.9
--- NOTE | 2022-02-03 04:00 | ED ---
ENT HPI - General Chief complaint: ENT Stated complaint: Swollen Uvula Time Seen by Provider: 02/03/22 03:59 Source: patient Mode of arrival: ambulatory Limitations: no limitations - Related Data Home Medications Medication Instructions Recorded Confirmed Levothyroxine Sodium [Synthroid] 150 mcg PO HS 04/16/21 04/16/21 amLODIPine [Norvasc] 5 mg PO HS 04/16/21 04/16/21 Previous Rx's Medication Instructions Recorded Aspirin 81 mg PO DAILY 30 Days #30 tab 04/18/21 Atorvastatin [Lipitor] 40 mg PO DAILY 30 Days #30 tab 04/18/21 Clopidogrel [Plavix] 75 mg PO DAILY 20 Days #20 tab 04/18/21 Gabapentin [Neurontin] 100 mg PO TID 30 Days #90 cap 04/18/21 guaiFENesin [Mucinex] 600 mg PO Q12HR #0 tablet 04/18/21 lisinopriL [Zestril] 5 mg PO DAILY 30 Days #30 tab 04/18/21 Allergies Allergy/AdvReac Type Severity Reaction Status Date / Time acetaminophen [From Percocet] Allergy Rash/Hives Verified 02/03/22 03:51 morphine Allergy Rash/Hives Verified 02/03/22 03:51 oxycodone [From Percocet] Allergy Rash/Hives Verified 02/03/22 03:51 Sulfa (Sulfonamide Allergy Rash/Hives Verified 02/03/22 03:51 Antibiotics) Tetracyclines Allergy Rash/Hives Verified 02/03/22 03:51 Review of Systems ROS Statement: Those systems with pertinent positive or pertinent negative responses have been documented in the HPI. ROS Other: All systems not noted in ROS Statement are negative. Past Medical History Past Medical History: Hypertension, Thyroid Disorder History of Any Multi-Drug Resistant Organisms: None Reported Past Surgical History: Section, Tonsillectomy Additional Past Surgical History / Comment(s): Thyroidectomy, Past Anesthesia/Blood Transfusion Reactions: No Reported Reaction Past Psychological History: No Psychological Hx Reported Smoking Status: Former smoker Past Alcohol Use History: Occasional Past Drug Use History: None Reported General Exam Limitations: no limitations Course Vital Signs 02/03/22 03:49 Temperature 97.9 F Pulse Rate 106 H Respiratory 20 Rate Blood Pressure 143/72 O2 Sat by Pulse 99 Oximetry - Reevaluation(s) Reevaluation #1: 02/03/22 medical record is reviewed Patient symptoms are improved here in the ER Patient informed of results and questions answered Disposition Clinical Impression: Uvulitis Disposition: HOME SELF-CARE Condition: Good Instructions (If sedation given, give patient instructions): Uvulitis (ED) Is patient prescribed a controlled substance at d/c from ED?: No Referrals: Nixon Goff MD [Primary Care Provider] - 1-2 days Time of Disposition: 04:55
[2022-02-03] MEDS ORDERED: dexAMETHasone 2 MG TAB PO STA (04:53)
[2022-02-03] MEDS ORDERED: AMOXIC-POT CLAV 875-125MG 1 EACH TAB PO STA (04:53)
[2022-02-03] MEDS ORDERED: FAMOTIDINE 20 MG TAB PO STA (04:53)
[2022-02-03] MEDS ORDERED: diphenhydrAMINE 50 MG CAP PO STA (04:53)
== END 2022-02-03 05:18 | disposition home or self-care (01) ==
LOC: EC 03:38
DX: K12.2 Cellulitis and abscess of mouth (principal); I10 Essential (primary) hypertension; E07.9 Disorder of thyroid, unspecified; Z87.891 Personal history of nicotine dependence; Z79.890 Hormone replacement therapy; Z79.899 Other long term (current) drug therapy; Z88.1 Allergy status to other antibiotic agents; Z88.2 Allergy status to sulfonamides; Z88.5 Allergy status to narcotic agent; Z88.6 Allergy status to analgesic agent
CPT/HCPCS: 99282; 96372; J0171; J8540

== ENCOUNTER → 2022-05-17 | Outpatient (CLI) | payer MEDICARE, OTHER ==
--- NOTE | 2022-05-17 20:08 | MR ---
EXAMINATION TYPE: MR knee LT wo con DATE OF EXAM: 05/17/2022 COMPARISON: Outside left knee x-ray 9 days ago. HISTORY: Left knee pain locking and swelling for 1 year. TECHNIQUE: Multiplanar, multisequence images of the knee is performed without IV contrast. FINDINGS: MEDIAL MENISCUS: Medial bulging medial meniscus on coronal images. Globular increased signal posterio r horn and anterior horn does not definitively extend to articular surface. Linear extension to the c entral body is present. LATERAL MENISCUS: Anterior and posterior horns are intact without tear. CRUCIATE LIGAMENTS: The anterior and posterior cruciate ligaments are intact and unremarkable. COLLATERAL LIGAMENTS: The medial collateral ligament and lateral collateral ligament complex are inta ct. Fluid signal surrounds the medial collateral ligament. EXTENSOR MECHANISM: Visualized quadriceps and patellar tendons are intact. EFFUSION: Small to borderline moderate sized suprapatellar joint effusion. POPLITEAL CYST: There is multi septated popliteal/swain cyst measuring near 7 cm long axis on sagitta l images with ill-defined fluid extending inferiorly. Partial tearing at the tendon insertion posteri or distal medial femoral condyle. . TRICOMPARTMENT SPACES: Moderate to severe narrowing and mild spurring patellofemoral compartment. Mil d to moderate narrowing and spurring the lateral and medial tibiofemoral compartments. CARTILAGE: Chondromalacia patella with cartilaginous loss along the posterior patellar pole. BONE MARROW SIGNAL: Areas of heterogeneous increased T2 signal in the posterior patellar pole at site of most prominent cartilaginous loss. OTHER: No additional significant abnormality is appreciated. IMPRESSION: 1. At least intrasubstance tear through the entire medial meniscus. No definitive full-thickness meni scal tear. 2. Tricompartment degenerative changes that are moderate to advanced patellofemoral compartment as de tailed above. 3. Mild MCL sprain injury. 4. Small to borderline moderate size suprapatellar joint effusion. 5. Moderate size leaking multi septated popliteal cyst.
== END | disposition home or self-care (01) ==
LOC: RADMRIMAIN 18:42
PROVIDERS: ATTEND Orthopaedic Surgery
DX: M17.12 Unilateral primary osteoarthritis, left knee (principal); S83.412A Sprain of medial collateral ligament of left knee, initial encounter; M71.22 Synovial cyst of popliteal space [Baker], left knee

== ENCOUNTER 2022-06-27 08:13 | Day surgery (SDC) | payer MEDICARE, OTHER ==
--- NOTE | 2022-06-27 06:51 | HP ---
HISTORY AND PHYSICAL SCHEDULED DATE OF SURGERY: 06/27/2022. HISTORY OF PRESENT ILLNESS: Dodie Novak is a 67-year-old patient, seen with progressive left knee pain. Options were discussed. She elected to proceed with left knee arthroscopy. Consent was obtained. Medical clearance was provided by Dr. Goff. PAST MEDICAL HISTORY: Hypertension, hyperlipidemia, history of previous stroke, and hypothyroidism. PAST SURGICAL HISTORY: section, tonsillectomy, and thyroidectomy. DAILY MEDICATIONS: 1. Atorvastatin. 2. Carvedilol. 3. Levothyroxine. 4. Amlodipine. ALLERGIES: 1. Morphine. 2. Sulfa. 3. Tetracycline. SOCIAL HISTORY: She denies tobacco use. PHYSICAL EVALUATION OF THE LEFT KNEE: Range of motion is 0 to 130 degrees. Mild effusion. Tenderness along the medial and lateral joint lines. Positive medial Laura's. Positive lateral Laura's. Ligaments are stable. Hip rotation is without pain. Distal neurovascular exam is intact. IMAGING STUDIES: Left knee radiographs revealed mild osteoarthritic changes. MRI left knee revealed medial meniscal tear, effusion, popliteal cyst, and osteoarthritic changes. IMPRESSION: 1. Internal derangement of left knee with medial meniscal tear. 2. Hypertension. 3. Hyperlipidemia. 4. Hypothyroidism. PLAN: Left knee arthroscopy with partial medial meniscectomy and debridement. MMODL / IJN: [id number] /
[~2022-06-27 08:13] MED LIST: DEXAMETHASONE SOD PHOSPHATE 4 MG/ML 1 ML VIAL IV ONE; LACTATED RINGERS 1,000 ML IV SCH; ONDANSETRON 4 MG/2 ML VIAL IVP ONE; fentaNYL (PF) 50 MCG/ML 2 ML AMP IV PRN
[2022-06-27] MEDS ORDERED: LIDOCAINE 1% (10MG/ML) FOR IV START INTRADERMA ONE (09:00)
[2022-06-27] MEDS ORDERED: MIDAZOLAM 2 MG/2 ML VIAL ONE (09:08)
[2022-06-27] MEDS ORDERED: KETOROLAC 15 MG/ML 1 ML VIAL ONE (09:08)
[2022-06-27] MEDS ORDERED: LIDOCAINE 2% INJ 20 MG/ML (2 ML VIAL) ONE (09:08)
[2022-06-27] MEDS ORDERED: PROPOFOL 10 MG/ML 20 ML VIAL IV ONE (09:08)
[2022-06-27] MEDS ORDERED: fentaNYL (PF) 50 MCG/ML 2 ML AMP ONE (09:08)
[2022-06-27] MEDS ORDERED: BUPIVACAINE (PF) 0.25% 30 ML VIAL INTRAARTIC ONE (09:13)
--- NOTE | 2022-06-27 09:58 | P.OP ---
Date of Procedure: 06/27/22 Preoperative Diagnosis: Internal derangement left knee Postoperative Diagnosis: 1. Tear medial and lateral meniscus left knee 2. Grade 2 chondromalacia medial femoral condyle left knee 3. Reactive synovitis medial, lateral and suprapatellar compartments left knee Procedure(s) Performed: 1. Arthroscopic partial medial and lateral meniscectomy left knee 2. Arthroscopic chondroplasty medial femoral condyle left knee 3. Arthroscopic partial synovectomy medial, lateral and suprapatellar compartments left knee Anesthesia: ANDREAA, local Surgeon: Yong Grayson Estimated Blood Loss (ml): 7 Pathology: none sent Condition: stable Disposition: PACU Indications for Procedure: 67-year-old patient who was seen with progressive left knee pain. After treatment options were discussed with her, she elected to proceed with arthroscopy. Operative Findings: See description of procedure Description of Procedure: Patient was taken to the operative suite. Patient underwent a general anesthetic by the department of anesthesia. Patient was given preoperative antibiotics. The left lower extremity was placed in a well-padded arthroscopic leg carcamo. The left leg was prepped and draped in the normal sterile orthopedic fashion. A lateral parapatellar and suprapatellar incision was made. Trochars were inserted. Arthroscopy was initiated. Suprapatellar pouch revealed diffuse thick reactive synovitis. The patellofemoral joint appeared to articulate congruently. There was grade 1/2 chondromalacia of the patella without significant osteochondral tears. The scope was guided into the medial gutter. No loose bodies or plica were identified. The scope was then guided into the medial compartment. A medial parapatellar incision was made. Trocar inserted followed by probe. There was a radial tear posterior horn medial meniscus. There were grade 2 chondromalacia changes medial femoral condyle with some osteochondral flap tears. There was some thick reactive synovitis anteriorly. I performed a partial medial meniscectomy getting down to stable meniscal tissue. I performed a chondroplasty of the medial femoral condyle getting down to stable osteochondral tissue. I performed a partial synovectomy decompressing the thick reactive synovitis. The residual meniscus was stable. The residual osteochondral surface was stable again noted grade 2 chondromalacia. There was good decompression of the synovitis. Scope and probe were then guided into the intercondylar notch. Cruciates were identified, probed and found to be stable. The scope and probe were then guided into lateral compartment. There was a radial tear mid body lateral meniscus. There was no chondromalacia. There was some thick reactive synovitis anteriorly. I performed a partial lateral meniscectomy getting down to stable meniscal tissue. I performed a partial synovectomy decompressing the reactive synovitis. The residual meniscus was stable. There was good decompression of the synovitis. The scope was in guided back into the suprapatellar compartment. I introduced a motorized shaver into the suprapatellar compartment. I debrided some piecemeal fragments of meniscus that I encountered. I performed a partial synovectomy. Shaver was now removed. There was good decompression of the synovitis. I now took one more look around the entire knee, no residual debris. Instruments were now removed from the joint. The joint was infiltrated with .25% Marcaine. Steri-Strips were applied to the portal sites. Sterile dressings were applied. The patient was placed into a MINDY hose. No tourniquet was utilized. The patie nt was awakened, transferred to a bed and taken to recovery stable satisfactory condition.
[2022-06-27 10:19] VITALS: TEMP 96.8
[2022-06-27 11:45] VITALS: BP 127/78; PULSE 72; RESP 18
== END 2022-06-27 11:55 | disposition home or self-care (01) ==
LOC: OR 08:13
PROVIDERS: ATTEND Orthopaedic Surgery
DX: S83.282A Other tear of lateral meniscus, current injury, left knee, initial encounter (principal); S83.242A Other tear of medial meniscus, current injury, left knee, initial encounter; M94.262 Chondromalacia, left knee; M65.862 Other synovitis and tenosynovitis, left lower leg; M17.12 Unilateral primary osteoarthritis, left knee; X58.XXXA Exposure to other specified factors, initial encounter; I10 Essential (primary) hypertension; E78.5 Hyperlipidemia, unspecified; E03.9 Hypothyroidism, unspecified; Z86.73 Personal history of transient ischemic attack (TIA), and cerebral infarction without residual deficits; Z79.899 Other long term (current) drug therapy; Z79.890 Hormone replacement therapy; Z88.5 Allergy status to narcotic agent; Z88.2 Allergy status to sulfonamides; Z88.1 Allergy status to other antibiotic agents; Z87.891 Personal history of nicotine dependence
CPT/HCPCS: 29880; J2250; J1100; J0690; J2405; J3010; J1885; J2704; J2001

== ENCOUNTER → 2022-12-16 | Outpatient (CLI) | payer MEDICARE, OTHER ==
--- NOTE | 2022-12-16 08:40 | BD ---
EXAMINATION TYPE: Bone Density DATE OF EXAM: 12/16/2022 CLINICAL HISTORY: 67 years old Female. ICD-10 CODE: Z78.0 ASYMPTOMATIC MENOPAUSAL STA Height: 62 Weight: 202.5 FRAX RISK QUESTIONS: Alcohol (3 or more units per day): no Family History (Parent hip fracture): no Glucocorticoids (More than 3mos): no History of Fracture in Adulthood: no Secondary Osteoporosis: 1. Type 1 Diabetes: no 2. Hyperthyroidism: no 3. Menopause before 45: no 4. Malnutrition: no 5. Chronic liver disease: no Rheumatoid Arthritis: no Current Tobacco Use: no RISK FACTORS HISTORY OF: Hip Fracture (Right/Left): no Spine Fracture: no History of Wrist Fracture: no Surgery to Spine/Hip(right/left)/Wrist (right/left): no Family History of Osteoporosis: no Active: yes Diet low in dairy products/other sources of calcium: no Postmenopausal woman: yes Take estrogen and/or progesterone medications: no Lost more than 2 inches in height since high school: no Frequent falls: no Poor Health: no Hyperparathyroidism: thyroid removed 2001 Adrenal Insufficiency: no MEDICATIONS: Prednisone or other steroids: no Thyroid Medications: Levothyroxine How Long: since 2001 Osteoporosis Medications: no Additional Medications: BP Meds x2, Multi Vit. Additional History: EXAM MEASUREMENTS: Bone mineral densitometry was performed using the Pairy System. Bone mineral density as measured about the Lumbar spine is: ----- L1-L4(G/cm2): 1.095 T Score Values are as follows: ----- L1: -1.0 ----- L2: -1.2 ----- L3: -0.9 ----- L4: 0.1 ----- L1-L4: -0.7 Z Score Values are as follows: ----- L1: -0.3 ----- L2: -0. ----- L3: -0.1 ----- L4: 0.9 ----- L1-L4: 0.1 Baseline Study Bone mineral density about the R hip (g/cm2): 0.940 Bone mineral density about the L hip (g/cm2): 0.953 T Score values are as follows: -----R Neck: -1.3 -----L Neck: -1.1 -----R Total: -0.5 -----L Total: -0.4 Z Score values are as follows: -----R Neck: -0.2 -----L Neck: 0.0 -----R Total: 0..3 -----L Total: 0.4 Baseline Study FRAX%s: The graph provided illustrates a 8.5 % chance for a major osteoporotic fx and a 1.0% chance f or the hips probability for fx in 10 years time. IMPRESSION: Osteopenia (T Score between -2.5 and -1). There is slightly increased risk of fracture and the patient may be considered for treatment. Re-Screen 2-5 years. NOTE: T-SCORE=SD OF THE YOUNG ADULT MEAN.
--- NOTE | 2022-12-17 09:36 | MM ---
Reason for Exam: Screening (asymptomatic). Last mammogram was performed 1 year(s) and 3 month(s) ago. Patient History: Menarche at age 13. First Full-Term at age 20. Postmenopausal. Patient has history of breast feeding. Risk Values: Flora 5 year model risk: 1.4%. NCI Lifetime model risk: 4.3%. Prior Study Comparison: 07/11/2011 Bilateral Screening Mammogram, [facility]. 09/11/2016 Bilateral Screening Mammogram, [facility]. 09/12/2021 Bilateral MG 3D screening mammo w/cad, [facility]. Tissue Density: There are scattered fibroglandular densities. Findings: Analyzed By CAD. Right appears symmetrical and stable. Chronic nodularity is within the right breast. Scattered benign round calcifications are present bilaterally. No suspicious groups of microcalcifications, spiculated or lobular masses, architectural distortion or other secondary signs of malignancy are mammographically apparent. Overall Assessment: Benign, BI-RAD 2 Management: Screening Mammogram of both breasts in 1 year. A negative mammogram report should not preclude additional follow up of suspicious palpable abnormalities. Patient should continue monthly self breast exam. A clinical breast exam by your physician is recommended on an annual basis and results should be correlated with mammographic findings. Electronically signed and approved by: Tim Richardson D.O. Radiologis
== END | disposition home or self-care (01) ==
LOC: RADMAMWWP 07:29
PROVIDERS: ATTEND Internal Medicine
DX: Z12.31 Encounter for screening mammogram for malignant neoplasm of breast (principal); Z13.820 Encounter for screening for osteoporosis; M85.89 Other specified disorders of bone density and structure, multiple sites; Z78.0 Asymptomatic menopausal state
CPT/HCPCS: 77063; 77067; 77080

== ENCOUNTER → 2024-06-01 | Outpatient (CLI) | payer MEDICARE, OTHER ==
--- NOTE | 2024-06-01 09:28 | MM ---
Reason for Exam: Screening (asymptomatic). Last mammogram was performed 1 year(s) and 6 month(s) ago. Patient History: Menarche at age 13. First Full-Term at age 20. Postmenopausal. Patient has history of breast feeding. Risk Values: Flora 5 year model risk: 1.4%. NCI Lifetime model risk: 4.0%. Prior Study Comparison: 09/11/2016 Bilateral Screening Mammogram, [facility]. 09/12/2021 Bilateral MG 3D screening mammo w/cad, [facility]. 12/16/2022 Bilateral MG 3D screening mammo w/cad, [facility]. Tissue Density: The breasts are heterogeneously dense, which may obscure small masses. Findings: Analyzed By CAD. Benign-appearing bilateral axillary lymph nodes are redemonstrated. There are small scattered benign-appearing round calcifications bilaterally redemonstrated. There are stable 5 mm circumscribed round masses bilaterally with fibrocystic change redemonstrated. There is no suspicious new group of microcalcifications or new suspicious mass in either breast. Overall Assessment: Benign, BI-RAD 2 Management: Screening Mammogram of both breasts in 1 year. . Patient should continue monthly self-breast exams. A clinical breast exam by your physician is recommended on an annual basis. This exam should not preclude additional follow-up of suspicious palpable abnormalities. Note on Flora scores and lifetime risk: 1. A Flora score greater than 3% is considered moderate risk. If this is the case, consider specialist referral to assess eligibility for a risk reducing agent. 2. If overall lifetime risk for the development of breast cancer is 20% or higher, the patient may qualify for future screening with alternating mammogram and breast MRI. [facility], , 06/01/2024 9:25 AM. Electronically signed and approved by: Reji Allison M.D.
== END | disposition home or self-care (01) ==
LOC: RADMAMWWP 07:53
PROVIDERS: ATTEND Internal Medicine
DX: Z12.31 Encounter for screening mammogram for malignant neoplasm of breast (principal); R92.333 Mammographic heterogeneous density, bilateral breasts; R92.1 Mammographic calcification found on diagnostic imaging of breast; Z78.0 Asymptomatic menopausal state
CPT/HCPCS: 77063; 77067